=== PATIENT | male | born 1970 | race Caucasian/White ===

== ENCOUNTER 2017-03-28 19:27 | Emergency (ER) | payer MEDICAID ==
--- NOTE | 2017-03-28 19:36 | EDPHY ---
H & P Time Seen by Provider: 03/28/17 19:29 HPI/ROS: CHIEF COMPLAINT: Med clearance HISTORY OF PRESENT ILLNESS: Patient is a 47-year-old man who was brought to the emergency department by EMS for pole dancing with the stop sign. Police brought him here was EMS for medical clearance. He has and is not admitting to any specific substances. No signs of trauma. Denies medical complaints. REVIEW OF SYSTEMS: unable to obtain secondary to condition EXAM: GENERAL: Disheveled, HEAD: Atraumatic, normocephalic. EYES: Pupils equal round and reactive to light, extraocular movements intact, sclera anicteric, conjunctiva are normal. ENT: TMs normal, nares patent, oropharynx clear without exudates. Moist mucous membranes. NECK: Normal range of motion, supple without lymphadenopathy or JVD. LUNGS: Breath sounds clear to auscultation bilaterally and equal. No wheezes rales or rhonchi. HEART: Regular rate and rhythm without murmurs, rubs or gallops. ABDOMEN: Soft, nontender, normoactive bowel sounds. No guarding, no rebound. No masses appreciated. BACK: No CVA tenderness, no spinal tenderness, step-offs or deformities EXTREMITIES: Normal range of motion, no pitting or edema. No clubbing or cyanosis. NEUROLOGICAL: Cranial nerves II through XII grossly intact. Normal speech, stable gait. 5/5 strength, normal movement in all extremities, normal sensation PSYCH: Normal mood, normal affect. SKIN: Warm, dry, normal turgor, no visible rashes or lesions. Source: Patient, Police Exam Limitations: No limitations - Medical/Surgical History Hx Asthma: No Hx Chronic Respiratory Disease: No Hx Diabetes: No Hx Cardiac Disease: No Hx Renal Disease: No Hx Cirrhosis: No Hx Alcoholism: No Hx HIV/AIDS: No Hx Splenectomy or Spleen Trauma: No Other PMH: pmh- schizo, bipolar. psh- leg, jaw - Family History Significant Family History: No pertinent family hx - Social History Smoking Status: Current every day smoker Alcohol Use: Sober Drug Use: None Constitutional: Initial Vital Signs Temperature (C) 36.4 C 03/28/17 19:44 Heart Rate 100 03/28/17 19:44 Respiratory Rate 18 03/28/17 19:44 Blood Pressure 138/92 H 03/28/17 19:44 O2 Sat (%) 96 03/28/17 19:44 O2 Delivery Mode Room Air Allergies/Adverse Reactions: No Known Allergies Allergy (Unverified 07/17/16 10:23) Home Medications: Medication Instructions Recorded Neurontin 07/17/16 Medical Decision Making ED Course/Re-evaluation: The patient is refusing breathalyzer. He did require restraints because he continued to trying get out of bed. He was not sedated. Soon after the restraints were placed the patient fell asleep and was calm. 10:10 p.m. the patient is ambulating. He is no longer restless or confused. We will transfer [facility] to [facility]. Differential Diagnosis: Partial list of the Differential diagnosis considered include but were not limited to; intoxication, polysubstance abuse, psychosis and although unlikely based on the history and physical exam, I also considered head injury, infection. I discussed these differential diagnoses and the plan with the patient as well as the usual and expected course. The patient understands that the diagnosis is provisional and that in medicine we are not always correct and that further workup is often warranted. Usual and customary warnings were given. All of the patient's questions were answered. The patient was instructed to return to the emergency department should the symptoms at all worsen or return, otherwise to followup with the physician as we discussed. - Data Points Medications Given: Discontinued Medications Chlordiazepoxide (Librium 25 Mg Prepack#6) 1 btl TAKEPINKY EDNOW ONE Stop: 03/28/17 22:13 Last Admin: 03/28/17 22:16 Dose: 1 btl Departure - Departure Disposition: Home, Routine, Self-Care Clinical Impression: Polysubstance abuse Condition: Fair Instructions: Chlordiazepoxide (By mouth), Polysubstance Abuse (ED) Referrals: Patient,NotPresent [Unknown] - As per Instructions
[2017-03-28 19:45] VITALS: TEMP 97.5
[2017-03-28] MEDS ORDERED: CHLORDIAZEPOXIDE 25MG PREPK#6 BTL TAKEHOME ONE (22:12)
[2017-03-28 22:19] VITALS: BP 96/66; PULSE 88; RESP 16; O2SAT 98
== END 2017-03-28 22:42 | disposition home or self-care (01) ==
LOC: EDUNIT#
DX: F19.10 Other psychoactive substance abuse, uncomplicated (principal); F17.200 Nicotine dependence, unspecified, uncomplicated

== ENCOUNTER 2017-08-14 06:04 | Emergency (ER) | payer MEDICAID ==
--- NOTE | 2017-08-14 06:15 | EDPHY ---
H & P HPI/ROS: HPI CHIEF COMPLAINT: "Migraine Headache after being arrested" HISTORY OF PRESENT ILLNESS: This patient 47-year-old male, significant past medical history for bipolar disorder, he presents emergency room by EMS, please make contact with him on [facility] [employer] he was sleeping in a university building, under a table trying to stay warm. He states he felt fine and was sleeping. 911 was called by a registered radiologic technologist. He awoke up, Police made contact with him as he was trespassing on campus. He is homeless. After being arrested he started complaining of a headache. He states he has a migraine headache and that he normally treats this with marijuana. He tells me he is out of his marijuana and developed a migraine headache. This started after being arrested. He was brought to emergency room for medical clearance. Upon arrival here in the emergency room he is handcuffed. He states he has had a migraine for 12 hours. However distally reports he was sleeping under a table this evening felt warm and felt fine. Of note here in emergency room the patient appears well nontoxic. He has a normal neurological exam. He complains of a headache behind his eyes. 01/04. He tells me this feels exactly like his previous migraine headaches. He denies any neck pain, stiff neck, fever. Denies chest pain or shortness of breath. Denies focal numbness or tingling or focal weakness. Patient has agreed for Tylenol for headache as well as a Toradol shot. He is under police custody. Past Medical History: Bipolar disorder Past Surgical History: Jaw surgery Social History: Homeless, history of alcohol marijuana use Family History: Noncontributory ROS REVIEW OF SYSTEMS: A comprehensive 10 point review of systems is otherwise negative aside from elements mentioned in the history of present illness. Exam Constitutional appears well nontoxic triage nursing summary reviewed, vital signs reviewed, awake/alert. Eyes normal conjunctivae and sclera, EOMI, PERRLA. HENT normal inspection, atraumatic, moist mucus membranes, no epistaxis, neck supple/ no meningismus, no raccoon eyes. Respiratory clear to auscultation bilaterally, normal breath sounds, no respiratory distress, no wheezing. Cardiovascular rate normal, regular rhythm, no murmur, no edema, distal pulses normal. Gastrointestinal soft, non-tender, no rebound, no guarding, normal bowel sounds, no distension, no pulsatile mass. Genitourinary no CVA tenderness. Musculoskeletal no midline vertebral tenderness, full range of motion, no calf swelling, no tenderness of extremities, no meningismus, good pulses, neurovascularly intact. Skin pink, warm, & dry, no rash, skin atraumatic. Neurologic nonfocal neurological exam unremarkable neuro exam. No focal neuro deficits, no meningeal signs, awake, alert and oriented x 3, AAOx3, moves all 4 extremities equally, motor intact, sensory intact, CN II-XII intact, normal cerebellar, normal vision, normal speech. Psychiatric normal mood/affect. Heme/Lymph/Immune no lymphadenopathy. Differential Diagnosis: Includes but is not limited to in a particular order migraine headache, tension headache, cluster headache. Medical Decision Making: Plan for this patient 1 g Tylenol p.o.. 30 mg IM Toradol. He otherwise is well nontoxic in no acute distress. He has a normal neurological exam. He tells me this migraine headache feels exactly like his previous migraine headaches. He normally treated with CBD. Or marijuana. He tells me was sleeping comfortably this evening until the registered radiologic technologist call 911 and police arrested him. Plan is for him to be treated for his migraine with 30 mg IM Toradol and 1 g of Tylenol. And then he is medically cleared and go to skilled nursing. I do not feel that he needs any imaging. No trauma reported. His neurological exam is unremarkable. Source: Patient, EMS - Medical/Surgical History Hx Asthma: No Hx Chronic Respiratory Disease: No Hx Diabetes: No Hx Cardiac Disease: No Hx Renal Disease: No Hx Cirrhosis: No Hx Alcoholism: No Hx HIV/AIDS: No Hx Splenectomy or Spleen Trauma: No Other PMH: pmh- schizo, bipolar. psh- leg, jaw - Social History Smoking Status: Current every day smoker Constitutional: Initial Vital Signs Temperature (C) 36.4 C 08/14/17 06:16 Heart Rate 73 08/14/17 06:16 Respiratory Rate 18 08/14/17 06:16 Blood Pressure 124/83 H 08/14/17 06:16 O2 Sat (%) 95 08/14/17 06:16 O2 Delivery Mode Room Air Allergies/Adverse Reactions: No Known Allergies Allergy (Verified 08/14/17 06:18) Home Medications: Medication Instructions Recorded Neurontin 07/17/16 Departure - Departure Disposition: Home, Routine, Self-Care Clinical Impression: Headache Qualifiers: Headache type: unspecified Headache chronicity pattern: acute headache Intractability: not intractable Qualified Code(s): R51 - Headache Condition: Good Instructions: Acute Headache (ED) Additional Instructions: 1. Medically Cleared for Skilled Nursing. Referrals: NONE *PRIMARY CARE P,. [Primary Care Provider] - As per Instructions
[2017-08-14 06:19] VITALS: BP 124/83; PULSE 73; RESP 18; TEMP 97.5; O2SAT 95
[2017-08-14] MEDS ORDERED: KETOROLAC 15 MG/1 ML SDV IM ONE (06:22)
[2017-08-14] MEDS ORDERED: ACETAMINOPHEN 500 MG TAB PO ONE (06:22)
[2017-08-14] MEDS ORDERED: KETOROLAC 30 MG/1 ML SDV ONE (06:25)
== END 2017-08-14 06:41 | disposition home or self-care (01) ==
LOC: EDUNIT#
DX: R51 Headache (principal); F17.200 Nicotine dependence, unspecified, uncomplicated
CPT/HCPCS: J1885

== ENCOUNTER 2017-10-07 01:24 | Emergency (ER) | payer MEDICAID ==
--- NOTE | 2017-10-07 01:31 | EDPHY ---
H & P HPI/ROS: HPI CHIEF COMPLAINT: Medical clearance for nursing home. HISTORY OF PRESENT ILLNESS: This patient very pleasant 47-year-old male, homeless, he is brought to the emergency room for medical clearance for nursing home. He states shortly after being arrested developed very severe anxiety and panic attack. He states he feels very anxious and is also feeling tightness in his chest. Denies any chest pain. He denies trauma to his chest. He does have pain when I press on his anterior chest wall as well as back. He reports to me feels very anxious and would like something for his anxiety. Past Medical History: Bipolar disorder, schizophrenia, PTSD, panic attacks, anxiety Past Surgical History: Jaw surgery, leg surgery. Social History: Homeless, smokes tobacco, denies daily use of alcohol or illicit drugs. Family History: Noncontributory. ROS REVIEW OF SYSTEMS: A comprehensive 10 point review of systems is otherwise negative aside from elements mentioned in the history of present illness. Exam Constitutional appears anxious, triage nursing summary reviewed, vital signs reviewed, awake/alert. Eyes normal conjunctivae and sclera, EOMI, PERRLA. HENT normal inspection, atraumatic, moist mucus membranes, no epistaxis, neck supple/ no meningismus, no raccoon eyes. Respiratory clear to auscultation bilaterally, normal breath sounds, no respiratory distress, no wheezing. Cardiovascular reproducible anterior chest wall pain with palpation, rate normal, regular rhythm, no murmur, no edema, distal pulses normal. Gastrointestinal soft, non-tender, no rebound, no guarding, normal bowel sounds, no distension, no pulsatile mass. Genitourinary no CVA tenderness. Musculoskeletal no midline vertebral tenderness, full range of motion, no calf swelling, no tenderness of extremities, no meningismus, good pulses, neurovascularly intact. Skin pink, warm, & dry, no rash, skin atraumatic. Neurologic awake, alert and oriented x 3, AAOx3, moves all 4 extremities equally, motor intact, sensory intact, CN II-XII intact, normal cerebellar, normal vision, normal speech. Psychiatric normal mood/affect. Heme/Lymph/Immune no lymphadenopathy. Differential Diagnosis: Includes but is not limited to in a particular order acute anxiety, panic attack, pneumothorax, musculoskeletal chest wall pain. Medical Decision Making: Given history and review of systems and clinical scenario I do not think acute coronary syndrome is likely. Will obtain EKG and chest x-ray. Will give a dose of Ativan 1 mg p.o. to see if this improves his symptoms. Re-evaluation: EKG interpretation by me on record in [employer] system. Impression time of EKG 1:49 a.m., this is sinus rhythm rate of 90. There is no acute ischemic changes. Specifically no ST elevation or ST depression. No T-wave abnormalities. This is unremarkable EKG. Patient's chest x-ray one view upright is negative for acute cardiopulmonary disease. Image interpreted by myself. EKG is nonischemic. Patient is sleeping. Feels better after 1 mg p.o. Ativan. I will allow him to be discharged to nursing home he is medically cleared for nursing home. His anxiety/panic attack has resolved here in the emergency room. At this time he has no complaints. Source: Patient, Police - Medical/Surgical History Hx Asthma: No Hx Chronic Respiratory Disease: No Hx Diabetes: No Hx Cardiac Disease: No Hx Renal Disease: No Hx Cirrhosis: No Hx Alcoholism: No Hx HIV/AIDS: No Hx Splenectomy or Spleen Trauma: No Other PMH: pmh- schizo, bipolar. psh- leg, jaw - Social History Smoking Status: Current every day smoker Constitutional: Initial Vital Signs Temperature (C) 36.6 C 10/07/17 01:34 Heart Rate 76 10/07/17 01:34 Respiratory Rate 16 10/07/17 01:34 Blood Pressure 142/97 H 10/07/17 01:34 O2 Sat (%) 96 10/07/17 01:34 O2 Delivery Mode Room Air Allergies/Adverse Reactions: No Known Allergies Allergy (Verified 10/07/17 01:29) Home Medications: Medication Instructions Recorded Neurontin 07/17/16 Medical Decision Making - Data Points Medications Given: Discontinued Medications Lorazepam (Ativan) 1 mg PO ONCE ONE Stop: 10/07/17 01:37 Last Admin: 10/07/17 01:39 Dose: 1 mg Departure - Departure Disposition: Home, Routine, Self-Care Clinical Impression: Panic attack Condition: Good Instructions: Anxiety (ED), Panic Attack (ED) Additional Instructions: 1.Medically cleared for nursing home.
[2017-10-07] MEDS ORDERED: LORazepam 1 MG TAB PO ONE (01:36)
[2017-10-07 01:45] VITALS: RESP 16; TEMP 97.9
--- NOTE | 2017-10-07 01:51 | CPEKG ---
Heart Rate: 90 RR Interval: 667 P-R Interval: 168 QRSD Interval: 82 QT Interval: 360 QTC Interval: 441 P [place]: 73 QRS [place]: 77 T Wave [place]: 56 EKG Severity - NORMAL ECG - EKG Impression: SINUS RHYTHM Electronically Signed By: Leandra Sauer 09-Oct-2017 05:27:40
[2017-10-07 02:50] VITALS: BP 138/90; PULSE 72; O2SAT 97
== END 2017-10-07 02:50 | disposition home or self-care (01) ==
DX: F41.0 Panic disorder [episodic paroxysmal anxiety] (principal); F17.200 Nicotine dependence, unspecified, uncomplicated

== ENCOUNTER 2017-10-24 22:47 | Emergency (ER) | payer MEDICAID ==
[2017-10-24] MEDS ORDERED: HALOPERIDOL LACT 5 MG/ML INJ IVP ONE (23:00)
[2017-10-24 23:01] VITALS: TEMP 98.2
--- NOTE | 2017-10-24 23:48 | EDPHY ---
H & P Stated Complaint: CI and head pain Time Seen by Provider: 10/24/17 22:51 HPI/ROS: Chief Complaint: Headache HPI: 47-year-old homeless male states that he has a migraine headache. Patient states this started earlier today. States this started after he snorted a substance he thought was meth. Does have a history of chronic headaches which she says are secondary to not wearing glasses. It is not the worst headache of his life. It was not sudden onset. He has been drinking alcohol but states his last drink was about 12 hr ago. He is not sure if he fell or hit his head. No nausea or vomiting. No fevers or chills. Bystander states that the patient walked to the [facility] the morning home however status and laid down and asked staff to call 911. ROS: 10 point Review of Systems is negative except as noted in the HPI. PMH: Chronic substance abuse, homeless Social History: Homeless, polysubstance abuse Family History: non-contributory Physical Exam: Gen: Awake, Alert, No Distress HEENT: Head is atraumatic Nose: no rhinorrhea Eyes: PERRLA, EOMI Mouth: Moist mucosa Neck: Supple, no JVD Chest: nontender, lungs clear to auscultation Heart: S1, S2 normal, no murmur Abd: Soft, non-tender, no guarding Back: no CVA tenderness, no midline tenderness Ext: no edema, non-tender Skin: no rash Neuro: CN II-XII intact, Sensation grossly intact, Strength 5/5 in bilateral upper and lower extremities - Personal History Current Tetanus/Diphtheria Vaccine: Unsure Current Tetanus Diphtheria and Acellular Pertussis (TDAP): Unsure - Medical/Surgical History Hx Asthma: No Hx Chronic Respiratory Disease: No Hx Diabetes: No Hx Cardiac Disease: No Hx Renal Disease: No Hx Cirrhosis: No Hx Alcoholism: No Hx HIV/AIDS: No Hx Splenectomy or Spleen Trauma: No Other PMH: pmh- schizo, bipolar. psh- leg, jaw - Social History Smoking Status: Current every day smoker Constitutional: Initial Vital Signs Temperature (C) 36.8 C 10/24/17 22:48 Heart Rate 68 10/24/17 22:48 Respiratory Rate 18 10/24/17 22:48 Blood Pressure 117/77 10/24/17 22:48 O2 Sat (%) 99 10/24/17 22:48 O2 Delivery Mode Room Air Allergies/Adverse Reactions: No Known Allergies Allergy (Verified 10/24/17 23:01) Home Medications: Medication Instructions Recorded Neurontin 07/17/16 Medical Decision Making - Diagnostics Imaging Results: Imaging Impressions Head CT 10/24/17 23:50 Impression: No traumatic sequelae. I telephoned results to Dr. Matthew Newton at 0013 hours. Imaging: Discussed imaging studies w/ tax accountant Radiologist ED Course/Re-evaluation: 47-year-old male complaining of headache after snorting an unknown substance that he thought was meth. He is awake and alert. There are no signs of head trauma. Will treat with some IV Haldol here and reassess. CT scan of the head is negative per radiologist. Patient is improved. Will discharge with follow up with [facility], return for worsening. - Data Points Medications Given: Discontinued Medications Haloperidol Lactate (Haldol Injection) 2.5 mg IVP EDNOW ONE Stop: 10/24/17 23:01 Last Admin: 10/24/17 23:13 Dose: 2.5 mg Departure - Departure Disposition: Home, Routine, Self-Care Clinical Impression: Polysubstance abuse, Headache Condition: Good Instructions: General Headache (ED), Polysubstance Abuse (ED) Additional Instructions: Follow up at the [facility] in 2-3 days for re-evaluation. Return to the emergency department for uncontrolled nausea vomiting, fevers, chills, numbness, weakness, or any other concerns. Referrals: [facility],. [Clinic] - As per Instructions
[2017-10-25 02:43] VITALS: BP 105/67; PULSE 82; RESP 14; O2SAT 96
== END 2017-10-25 03:52 | disposition home or self-care (01) ==
LOC: EDUNIT#
DX: R51 Headache (principal); F19.10 Other psychoactive substance abuse, uncomplicated; F17.200 Nicotine dependence, unspecified, uncomplicated
CPT/HCPCS: 96374

== ENCOUNTER 2017-10-27 09:58 | Emergency (ER) | payer MEDICAID ==
[2017-10-27] MEDS ORDERED: LORazepam 1 MG TAB PO ONE (10:02)
--- NOTE | 2017-10-27 10:03 | EDPHY ---
H & P Stated Complaint: med clear Time Seen by Provider: 10/27/17 10:01 HPI/ROS: CHIEF COMPLAINT: Anxiety, dyspnea after arrest HISTORY OF PRESENT ILLNESS: 47-year-old homeless male arrives in custody police complaining of acute anxiety, dyspnea after he was placed under arrest. Denies chest pain. Denies trauma. Denies cocaine or methamphetamine use. Denies fall. Denies syncope or near-syncope. REVIEW OF SYSTEMS: A ten point review of systems was performed and is negative with the exception of the items mentioned in the HPI PAST MEDICAL & SURGICAL HISTORY: No pertinent medical or surgical history SOCIAL HISTORY: homeless. Daily cigarette use. Denies acute alcohol or methamphetamine or cocaine use areas PHYSICAL EXAM (Prior to examination, patient consented to physical exam, hands were washed and my usual and customary physical exam procedures followed) 1) GENERAL: Well-developed, well-nourished, alert and oriented. Appears anxious , yelling. 2) HEAD: Normocephalic, atraumatic 3) HEENT: Pupils equal, round, reactive to light bilaterally. Sclera anicteric. 4) NECK: Full range of motion, no meningeal signs. 5) LUNGS: Clear auscultation bilaterally, no wheezes, no rhonchi, no retractions. No crepitus. Chest wall pain 6) HEART: Regular rate and rhythm, no murmur, no heave, no gallop. 7) ABDOMEN: No guarding, no rebound, no focal tenderness, negative McBurney's, negative Peguero's, negative Rovsing's, negative peritoneal sign, 8) MUSCULOSKELETAL: Moving all extremities, no focal areas of tenderness, no obvious trauma. No peripheral edema or discoloration. 9) BACK: No CVA tenderness, no midline vertebral tenderness, no fluctuance, no step-off, no obvious trauma, no visual or palpable abnormality. 10) SKIN: No rash, no petechiae. 11) Psychiatric: Patient is oriented X 3, there is no agitation. DIFFERENTIAL DIAGNOSIS: in no particular include but limited to pneumothorax, hemothorax, acute anxiety, mi - Personal History Current Tetanus/Diphtheria Vaccine: Yes Current Tetanus Diphtheria and Acellular Pertussis (TDAP): Yes Tetanus Vaccine Date: < 10 years - Medical/Surgical History Hx Asthma: No Hx Chronic Respiratory Disease: No Hx Diabetes: No Hx Cardiac Disease: No Hx Renal Disease: No Hx Cirrhosis: No Hx Alcoholism: No Hx HIV/AIDS: No Hx Splenectomy or Spleen Trauma: No Other PMH: pmh- schizo, bipolar. psh- leg, jaw - Social History Smoking Status: Current every day smoker Constitutional: Initial Vital Signs Temperature (C) 36.8 C 10/27/17 09:58 Heart Rate 84 10/27/17 09:58 Respiratory Rate 20 10/27/17 09:58 Blood Pressure 118/64 10/27/17 09:58 O2 Sat (%) 92 10/27/17 09:58 O2 Delivery Mode Room Air Allergies/Adverse Reactions: No Known Allergies Allergy (Verified 10/27/17 10:00) Home Medications: Medication Instructions Recorded Neurontin 07/17/16 Medical Decision Making ED Course/Re-evaluation: 10:11 am.: Old medical records reviewed. He denies chest pain. Complaining of acute anxiety and dyspnea. Prior history of similar prior to incarceration. He denies acute methamphetamine or cocaine use. EKG obtained normal sinus rhythm. Doubt UT. Doubt PE. I recommended chest x-ray which he declines. I believe him to have decision-making capacity, he denies intoxicants use shows no signs of altered mental status or gross intoxication. He is discharged to [facility] in custody of police. Care of patient under supervision of secondary supervising physician Dr Olson . Departure - Departure Disposition: Law Enforcement/Court/Fdc Clinical Impression: Anxiety Condition: Good Instructions: Anxiety (ED) Additional Instructions: If you develop chest pain, shortness of breath or any other symptoms alert the [facility] staff immediately Referrals: Follow-up, with the [facility] nurse in 1 day [Other] - As per Instructions
[2017-10-27 10:20] VITALS: BP 118/67; PULSE 81; RESP 18; TEMP 97.9; O2SAT 91
--- NOTE | 2017-10-27 11:44 | CPEKG ---
Heart Rate: 98 RR Interval: 612 P-R Interval: 172 QRSD Interval: 80 QT Interval: 360 QTC Interval: 460 P [place]: 60 QRS [place]: 64 T Wave [place]: 54 EKG Severity - NORMAL ECG - EKG Impression: SINUS RHYTHM Electronically Signed By: Angle Olson 27-Oct-2017 15:07:01
== END 2017-10-27 10:20 ==
DX: F41.9 Anxiety disorder, unspecified (principal); F17.210 Nicotine dependence, cigarettes, uncomplicated

== ENCOUNTER 2017-12-30 03:46 | Emergency (ER) | payer MEDICAID ==
[2017-12-30 03:53] VITALS: BP 107/67; PULSE 103; RESP 20; TEMP 99.3; O2SAT 95
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
== END 2017-12-30 04:29 | disposition home or self-care (01) ==
LOC: EDUNIT#
DX: F41.9 Anxiety disorder, unspecified (principal); F17.200 Nicotine dependence, unspecified, uncomplicated; Z02.89 Encounter for other administrative examinations

== ENCOUNTER 2018-03-08 23:00 | Emergency (ER) | payer MEDICAID ==
[2018-03-08] MEDS ORDERED: DIAZEPAM 5 MG TAB PO ONE (23:11)
[2018-03-08] MEDS ORDERED: CYCLOBENZAPRINE 10 MG TAB PO ONE (23:11)
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
[2018-03-09] MEDS ORDERED: ONDANSETRON DISINTEGRATING 4 MG TAB PO ONE (00:38)
[2018-03-09] MEDS ORDERED: ONDANSETRON DISINTEGRATING 4 MG TAB ONE (00:39)
[2018-03-09] MEDS ORDERED: METOCLOPRAMIDE 10 MG/2 ML VIAL IVP ONE (00:53)
[2018-03-09] MEDS ORDERED: NS 1,000 ML IV ONE (00:53)
[2018-03-09] MEDS ORDERED: KETOROLAC 15 MG/1 ML SDV IVP ONE (00:53)
[2018-03-09] MEDS ORDERED: KETOROLAC 15 MG/1 ML SDV ONE (00:53)
[2018-03-09 01:43] VITALS: BP 104/58
== END 2018-03-09 01:54 | disposition home or self-care (01) ==
LOC: EDUNIT#
DX: G44.89 Other headache syndrome (principal); F17.200 Nicotine dependence, unspecified, uncomplicated
CPT/HCPCS: 96374; J1200; J1885; J2765

== ENCOUNTER 2018-04-06 03:46 | Emergency (ER) | payer MEDICAID ==
--- NOTE | 2018-04-06 03:49 | EDPHY ---
H & P Time Seen by Provider: 04/06/18 03:49 HPI/ROS: HPI CHIEF COMPLAINT: Anxiety and medical clearance for [facility] HISTORY OF PRESENT ILLNESS: Patient is a 48-year-old male, presents to the emergency room for medical clearance for [facility]. Patient states after getting arrested he is having anxiety attack. He has been off his gabapentin is requesting a dose of gabapentin. He feels very anxious. He takes gabapentin for acute anxiety. Past Medical History: Anxiety Past Surgical History: Denies recent surgery Social History: Homeless. Family History: Noncontributory ROS REVIEW OF SYSTEMS: A comprehensive 10 point review of systems is otherwise negative aside from elements mentioned in the history of present illness. Exam Constitutional appears well nontoxic no acute distress, somewhat anxious, triage nursing summary reviewed, vital signs reviewed, awake/alert. Eyes normal conjunctivae and sclera, EOMI, PERRLA. HENT normal inspection, atraumatic, moist mucus membranes, no epistaxis, neck supple/ no meningismus, no raccoon eyes. Respiratory clear to auscultation bilaterally, normal breath sounds, no respiratory distress, no wheezing. Cardiovascular rate normal, regular rhythm, no murmur, no edema, distal pulses normal. Gastrointestinal soft, non-tender, no rebound, no guarding, normal bowel sounds, no distension, no pulsatile mass. Genitourinary no CVA tenderness. Musculoskeletal no midline vertebral tenderness, full range of motion, no calf swelling, no tenderness of extremities, no meningismus, good pulses, neurovascularly intact. Skin pink, warm, & dry, no rash, skin atraumatic. Neurologic awake, alert and oriented x 3, AAOx3, moves all 4 extremities equally, motor intact, sensory intact, CN II-XII intact, normal cerebellar, normal vision, normal speech. Psychiatric somewhat anxious, normal mood/affect. Heme/Lymph/Immune no lymphadenopathy. Differential Diagnosis: In a includes but is not limited to in a particular order acute anxiety, panic attack Medical Decision Making: Plan for this patient will give a dose of gabapentin. And then he be medically cleared for chcf. 0353: Patient given p.o. Gabapentin. Resting. No acute distress. Vital signs stable. Medically cleared for chcf. Source: Patient, Police - Personal History Tetanus Vaccine Date: < 10 years - Medical/Surgical History Hx Asthma: No Hx Chronic Respiratory Disease: No Hx Diabetes: No Hx Cardiac Disease: No Hx Renal Disease: No Hx Cirrhosis: No Hx Alcoholism: No Hx HIV/AIDS: No Hx Splenectomy or Spleen Trauma: No Other PMH: pmh- schizo, bipolar. psh- leg, jaw - Social History Smoking Status: Current some day smoker Allergies/Adverse Reactions: No Known Allergies Allergy (Verified 03/08/18 23:05) Home Medications: Medication Instructions Recorded Neurontin 07/17/16 Departure - Departure Disposition: Home, Routine, Self-Care Clinical Impression: Anxiety Condition: Good Instructions: Anxiety (ED) Additional Instructions: 1. Medically cleared for ch[facility]. Referrals: NONE *PRIMARY CARE P,. [Primary Care Provider] - As per Instructions
[2018-04-06] MEDS ORDERED: GABAPENTIN 300 MG CAP PO ONE (03:51)
[2018-04-06 03:57] VITALS: BP 106/77
== END 2018-04-06 03:55 | disposition home or self-care (01) ==
DX: F41.9 Anxiety disorder, unspecified (principal); F17.200 Nicotine dependence, unspecified, uncomplicated

== ENCOUNTER 2018-05-27 04:43 | Emergency (ER) | payer MEDICAID ==
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
[2018-05-27] MEDS ORDERED: OFLOXACIN 0.3% SOLN PREPACK OPHT.BTL TAKEHOME ONE ×2 (05:06→05:07)
[2018-05-27] MEDS ORDERED: PROPARACAINE/FLUORESCEIN SOD 5 ML OPHT.BTL ONE (05:16)
[2018-05-27] MEDS ORDERED: PROPARACAINE/FLUORESCEIN SOD 5 ML OPHT.BTL OP ONE (05:18)
[2018-05-27] MEDS ORDERED: IBUPROFEN 800 MG TAB PO ONE (05:31)
[2018-05-27 05:39] VITALS: BP 119/80
== END 2018-05-27 05:53 | disposition home or self-care (01) ==
LOC: EDUNIT#
DX: H20.9 Unspecified iridocyclitis (principal); H10.31 Unspecified acute conjunctivitis, right eye; F17.200 Nicotine dependence, unspecified, uncomplicated

== ENCOUNTER 2018-09-13 16:34 | Emergency (ER) | payer MEDICAID ==
[~2018-09-13 16:34] MED LIST: CEPHALEXIN 500 MG CAP PO SCH
[2018-09-13] MEDS ORDERED: LORazepam 2 MG/ML INJ IVP ONE (16:59)
[2018-09-13] MEDS ORDERED: ceFAZolin 2 GM/DEXTROSE 100 ML IV ONE (17:00)
--- NOTE | 2018-09-13 17:02 | EDPHY ---
H & P Stated Complaint: fall from tree, right forearm laceration - Personal History Current Tetanus/Diphtheria Vaccine: Yes Current Tetanus Diphtheria and Acellular Pertussis (TDAP): Yes Tetanus Vaccine Date: < 10 years - Medical/Surgical History Hx Asthma: No Hx Chronic Respiratory Disease: No Hx Diabetes: No Hx Cardiac Disease: No Hx Renal Disease: No Hx Cirrhosis: No Hx Alcoholism: No Hx HIV/AIDS: No Hx Splenectomy or Spleen Trauma: No Other PMH: pmh- schizo, bipolar. psh- leg, jaw - Social History Smoking Status: Current some day smoker Time Seen by Provider: 09/13/18 16:54 HPI/ROS: CHIEF COMPLAINT: Right arm laceration HISTORY OF PRESENT ILLNESS: 48-year-old male arrives via ambulance, not a trauma activation, after he was sitting on a tree branch approximately 10 ft in the air, the branch broke, he fell, impacted a fence which broke his fall, sustained laceration to his right ulnar are distal forearm. This is his only complaint. He denies alcohol use. He denies: Head injury, loss of consciousness, syncope , midline C-spine pain, peripheral paresthesia, weakness, numbness, back pain, straddle or genital injury, lower extremity injury, chest pain or trauma, back pain or trauma, abdominal pain or trauma, dyspnea. REVIEW OF SYSTEMS: 10 systems reviewed and negative with the exception of the elements mentioned in the history of present illness PAST MEDICAL/SURGICAL HISTORY: Anxiety. no anticoagulant use,. No history of HIV or hepatitis. No history of IV drug use. SOCIAL HISTORY: Homeless. Last smoke methamphetamine last night PHYSICAL EXAM 1) GENERAL: Well-developed, well-nourished, alert and oriented. Appears anxious , his difficulty sitting still. 2) HEAD: [Normocephalic, atraumatic, no abrasion, no laceration 3) HEENT: Pupils equal, round, reactive to light bilaterally. Negative Horners. Nasopharynx, oropharynx, clear. No deformity or angulation of nose. No septal hematoma. No rhinorrhea. No oral trauma. Ears bilaterally with normal tympanic membranes. No hemotympanum. No fluid or blood in the external auditory canal. No raccoon eyes. No Dupont sign.. 4) NECK: No cervical collar is on. Posterior cervical spine is nontender, no stepoff, no effusion. Full range of motion which does not elicit any midline cervical spine pain, no posterior midline tenderness, no step-off. 5) LUNGS: Clear to auscultation bilaterally, no wheezes, no rhonchi, no retractions. No obvious signs of trauma. No chest wall pain. No flaring, no grunting. Moving symmetrically. No crepitus. 6) HEART: [Regular rate and rhythm, 7) ABDOMEN: No guarding, no rebound, no focal tenderness, no peritoneal signs, no signs of trauma, no ecchymosis 8) MUSCULOSKELETAL: Right upper extremity: Right distal forearm ulnar aspect 4 cm linear laceration . No definitive osseous involvement. No foreign body. No vegetation. Distal pulses are brisk. Full sensation distally. No gross neurovascular deficits distally. Left upper extremity: Abrasion left elbow, full pain-free range of motion including no radial head pain. Distal neurovascular status intact. Right lower extremity: Full pain-free range of motion. Foot nontender. Calcaneus nontender. No visible trauma. No laceration or abrasion, soft compartments. Femur on acetabulum elicits no pain including axial loading. Left lower extremity:Full pain-free range of motion. Foot nontender. Calcaneus nontender. No visible trauma. No laceration or abrasion, soft compartments. Femur on acetabulum elicits no pain including axial loading. 9) BACK: No midline vertebral tenderness, no fluctuance, no step-off, no obvious trauma, no visual or palpable abnormality. 10) SKIN: laceration right forearm. Left elbow abrasion. DIFFERENTIAL DIAGNOSIS: In no particular order including but not limited to open fracture, laceration, full-thickness laceration (Genie,D Tatiana) Constitutional: Initial Vital Signs Temperature (C) 36.9 C 09/13/18 16:40 Heart Rate 86 09/13/18 16:40 Respiratory Rate 20 09/13/18 16:40 Blood Pressure 109/79 09/13/18 16:40 O2 Sat (%) 94 09/13/18 16:40 O2 Delivery Mode Room Air Allergies/Adverse Reactions: No Known Allergies Allergy (Verified 05/27/18 04:46) Home Medications: Medication Instructions Recorded Cephalexin [Keflex] 500 mg PO TID 7 Days cap 09/13/18 Medical Decision Making - Diagnostics Imaging Results: Imaging Impressions Forearm X-Ray 09/13/18 17:00 Impression: Soft tissue injury with no acute osseous findings. Procedures: 5:55 p.m.: Procedure: Laceration repair. I explained the indications, risks and benefits for both laceration repair and anesthetic administration. Verbal consent was obtained from the patient. The laceration on the right forearm was anesthetized using 0.5% bupivicaine with epinephrine. After anesthetic administered the patient was observed for a period of time and had no apparent adverse effects. The wound was cleaned, prepped, draped in normal sterile fashion and explored to its base. No foreign body seen, no foreign bodies palpated. There were deep structures involved. The skin was closed with 7 simple interrupted 4 0 Prolene sutures. The wound repair was complex. The procedure was performed by myself. Patient has been informed that scarring will occur, although efforts have been made to minimize this. Procedure: Splint A a Velcro volar splint was applied by ER laboratory development technician. After application of the splint I returned and re-examined the patient. The splint was adequately immobilizing the joint and distal to the splint the patient's circulation and sensation were intact. Patient shows no signs of compartment syndrome. Was given orthopedic precautions. (Kiah Prescott) ED Course/Re-evaluation: 5:01 p.m.: Patient admits to recent methamphetamine use. He is having difficulty sitting still and will not allow me to examine his right forearm. Will administer IV Ativan, he only allows me to view the forearm from a far. 5:30 p.m.: At this time he is calm, sleeping, easily woken.Patient consented to having me share photos with non identifying information with Hand surgery on- call. 5:46 p.m.: Phone consultation Dr. Hilton Woods reviewed the photos, recommended closure of of the skin only after extensive irrigation. He recommended splinting, antibiotics, follow up in office this week (today is Saturday). Re-examined the patient, he is sleeping, easily woken ,calm. Patient would like to be discharged. He is answering questions appropriately. I saw this patient independently based on established practice protocols. Care of patient under supervision of secondary supervising physician Dr Colin An. (Kiah Prescott) - Data Points Medications Given: Discontinued Medications Diphtheria/Tetanus/Acell Pertussis (Boostrix) 0.5 ml IM .ONCE ONE Stop: 09/13/18 18:00 Last Admin: 09/13/18 18:13 Dose: 0.5 ml Cefazolin Sodium/Dextrose (Ancef 1 Gm (Premix)) 50 mls @ 200 mls/hr IV EDNOW ONE PRN Reason: Protocol Stop: 09/13/18 17:13 Last Admin: 09/13/18 17:54 Dose: Not Given Cefazolin Sodium/Dextrose (Ancef) 100 mls @ 200 mls/hr IV EDNOW ONE PRN Reason: Protocol Stop: 09/13/18 17:29 Last Admin: 09/13/18 17:30 Dose: 100 mls Lorazepam (Ativan Injection) 1 mg IVP EDNOW ONE Stop: 09/13/18 17:00 Last Admin: 09/13/18 17:19 Dose: 1 mg Departure - Departure Disposition: Home, Routine, Self-Care Clinical Impression: Laceration of left forearm Qualifiers: Encounter type: initial encounter Qualified Code(s): S51.812A - Laceration without foreign body of left forearm, initial encounter Condition: Good Instructions: Care For Your Stitches (ED), Laceration (ED) Additional Instructions: Return to the ER immediately if you experience discoloration, have worsening pain, redness, red streaks going up your arm, numbness, tingling, or any other symptoms that concern you. If you received x-rays in the emergency department today, be advised, that ligamentous, tendon, muscular, and other non-bony injury cannot be fully ruled out. Try to keep your affected extremity elevated above the level of your chest, and keep cold packs on the affected area, for the next 48 hours. Referrals: Hilton Woods MD [Medical Doctor] - 2-3 days, call for appt. Prescriptions: Cephalexin [Keflex] 500 mg PO TID 7 Days cap
[2018-09-13] MEDS ORDERED: CEFAZOLIN 1 GM/DEXTROSE/50 ML BAG IV ONE (17:20)
[2018-09-13] MEDS ORDERED: TDAP ADULT 0.5 ML INJ (BOOSTRIX) IM ONE (17:59)
[2018-09-13 19:16] VITALS: BP 132/80
== END 2018-09-13 19:16 | disposition home or self-care (01) ==
LOC: EDUNIT#
PROC: 0HQBXZZ Repair Right Upper Arm Skin, External Approach (ICD-10-PCS; principal; 2018-09-13)
DX: S41.111A Laceration without foreign body of right upper arm, initial encounter (principal); W14.XXXA Fall from tree, initial encounter; Z59.0 Homelessness
CPT/HCPCS: 96365; J0690; J2060; L3984

== ENCOUNTER 2019-04-06 08:05 | Emergency (ER) | payer MEDICAID, OTHER ==
--- NOTE | 2019-04-06 08:13 | EDPHY ---
H & P Time Seen by Provider: 04/06/19 08:11 HPI/ROS: CHIEF COMPLAINT: Medical clearance for [facility] HISTORY OF PRESENT ILLNESS: The patient is brought in by paramedics for a medical clearance. He was arrested today for reported narcotics charges. The patient felt as if he may have a seizure and was experiencing mild anxiety. There is no seizure activity witnessed by paramedics. The patient arrives and is in no acute distress. He has no acute complaints now side from mild anxiety. He denies suicidal or homicidal ideation. REVIEW OF SYSTEMS: A comprehensive 10 point review of systems is otherwise negative aside from elements mentioned in the history of present illness. Source: Patient, EMS - Personal History Tetanus Vaccine Date: < 10 years - Medical/Surgical History Hx Asthma: No Hx Chronic Respiratory Disease: No Hx Diabetes: No Hx Cardiac Disease: No Hx Renal Disease: No Hx Cirrhosis: No Hx Alcoholism: No Hx HIV/AIDS: No Hx Splenectomy or Spleen Trauma: No Other PMH: pmh- schizo, bipolar. psh- leg, jaw - Social History Smoking Status: Current some day smoker - Physical Exam Exam: General Appearance: Disheveled male, no acute distress Eyes: Pupils equal and round no pallor or injection ENT, Mouth: Mucous membranes moist Respiratory: There are no retractions, lungs are clear to auscultation Cardiovascular: Regular rate and rhythm Gastrointestinal: Abdomen is soft and nontender, no masses, bowel sounds normal Neurological: Grossly normal motor exam Skin: Warm and dry, no rashes Musculoskeletal: Neck is supple nontender Extremities: symmetrical, full range of motion Psychiatric: Patient is oriented X 3, there is no agitation, denies suicidal or homicidal ideation Allergies/Adverse Reactions: No Known Allergies Allergy (Verified 05/27/18 04:46) Home Medications: Medication Instructions Recorded Cephalexin [Keflex] 500 mg PO TID 7 Days cap 09/13/18 Medical Decision Making ED Course/Re-evaluation: The patient is nontoxic and well-appearing. He has stable vital signs. No seizure activity is observed in the emergency department. The patient has been medically cleared for [facility]. Departure - Departure Disposition: Home, Routine, Self-Care Clinical Impression: Anxiety Condition: Good Instructions: Anxiety (ED) Additional Instructions: 1. Patient is medically cleared for [facility]. Referrals: NONE *PRIMARY CARE P,. [Primary Care Provider] - As per Instructions
[2019-04-06 08:15] VITALS: BP 98/62
== END 2019-04-06 08:19 | disposition home or self-care (01) ==
LOC: EDUNIT#
DX: F41.9 Anxiety disorder, unspecified (principal)

== ENCOUNTER 2019-04-10 22:14 | Emergency (ER) | payer MEDICAID ==
--- NOTE | 2019-04-10 22:25 | EDPHY ---
General Time Seen by Provider: 04/10/19 22:18 Narrative: CLINICAL IMPRESSION: Medical clearance for [facility] ASSESSMENT/PLAN: 49-year-old male presents to the emergency department for medical clearance before discharge to [facility]. Patient is under rest and intoxicated on methamphetamine, LSD, marijuana. He is alert, cooperative and has no physical complaints. He is hypertensive, non hypoxic and otherwise with stable vital signs. He was medically cleared for discharge to penitentiary under rest with [employer] police. CHIEF COMPLAINT: Medical clearance HPI: 49-year-old homeless male presents to the emergency department intoxicated on multiple drugs including methamphetamine, LSD, and marijuana. Patient states " I am tripping". He is under rest and in handcuffs. He has no physical complaints. He states "I did a lot of drugs tonight". PAST MEDICAL HISTORY: No medical or surgical history reported, homeless See triage summary and nurse notes for addition applicable history REVIEW OF SYSTEMS: A full 10 point review of systems was negative except for those mentioned in HPI. PHYSICAL EXAM: General Appearance: Alert, intoxicated, states "I am tripping", cooperative, hypertensive, no tachypnea, tachycardia, no hypoxia. Respiratory: There are no retractions, lungs are clear to auscultation. Cardiac: Regular rate and rhythm, no murmurs or gallops. Gastrointestinal: [Abdomen is soft, nontender Skin: Warm, dry, no rashes, no nodules on palpation. MEDICAL DECISION MAKING: Patient was seen independently. Secondary supervising physician at time of evaluation was: Dr. Riggs . Diagnosis: Medical clearance, drug intoxication. New, requires workup Summary: See Assessment and Plan for summary of ED visit Patient Progress: Stable for discharge to penit[facility]iary. - History Smoking Status: Current every day smoker - Objective Vital Signs: Initial Vital Signs Temperature (C) 36.8 C 04/10/19 22:16 Heart Rate 91 04/10/19 22:16 Respiratory Rate 18 04/10/19 22:16 Blood Pressure 145/82 H 04/10/19 22:16 O2 Sat (%) 95 04/10/19 22:16 O2 Delivery Mode Room Air Allergies/Adverse Reactions: Opioids - Morphine Analogues Allergy (Verified 04/10/19 22:16) Home Medications: Medication Instructions Recorded NK [No Known Home Meds] 04/10/19 Departure - Departure Disposition: Home, Routine, Self-Care Clinical Impression: Medical clearance for incarceration Condition: Good Instructions: Methamphetamine Abuse (ED) Additional Instructions: YOU HAVE BEEN MEDICALLY CLEARED FOR DISCHARGE TO [facility]. PLEASE STOP ABUSING DRUGS. FOLLOW UP WITH PRIMARY CARE. Referrals: NONE *PRIMARY CARE P,. [Primary Care Provider] - As per Instructions [facility],. [Clinic] - 1-2 days without fail
[2019-04-10 22:32] VITALS: BP 140/80
== END 2019-04-10 22:32 | disposition home or self-care (01) ==
LOC: EDUNIT#
DX: Z02.89 Encounter for other administrative examinations (principal); F19.920 Other psychoactive substance use, unspecified with intoxication, uncomplicated; F17.200 Nicotine dependence, unspecified, uncomplicated; Z59.0 Homelessness